=== PATIENT | female | born 1990 | race Caucasian/White ===

== ENCOUNTER 2018-09-09 02:29 | Emergency (ER) | payer OTHER ==
[~2018-09-09] VITALS: Ht 167.6 cm; Wt 59.0 kg
[2018-09-09 02:40] VITALS: Ht 167.6 cm; Wt 59.0 kg
[2018-09-09 05:36] VITALS: BP 133/66
[2018-09-09 06:58] LABS: microscopic required? NO
[2018-09-09 07:32] LABS: urine erythrocyte NEGATIVE (NEGATIVE)
== END 2018-09-09 05:36 | disposition home or self-care (01) ==
LOC: ED 02:29
PROVIDERS: Emergency Medicine
DX: S80.02XA Contusion of left knee, initial encounter (principal); S70.02XA Contusion of left hip, initial encounter; S09.8XXA Other specified injuries of head, initial encounter; V49.49XA Driver injured in collision with other motor vehicles in traffic accident, initial encounter; Y93.89 Activity, other specified; Y92.413 State road as the place of occurrence of the external cause; Y99.8 Other external cause status